=== PATIENT | male | born 1990 | race Caucasian/White ===

== ENCOUNTER 2017-10-27 02:43 | Emergency (ER) | payer SELFPAY ==
--- NOTE | 2017-10-27 04:30 | C.PDOC ---
History Of Present Illness 27 year old male presents to the ED for evaluation of intermittent abdominal pain after moving bowels which began 2 days ago. Patient reports the pain only occurs after he moves his bowels and sometimes radiates to his chest. Patient reports associated nausea, weakness and states he feels like he is going to "pass out." Patient also states he has been feeling his "heart beating rapidly. " Patient also complains of a stretching/pulling sensation to his right side. Patient states he is currently asymptomatic and denies fever, chills, vomiting. Time Seen by Provider: 10/27/17 03:35 Chief Complaint (Nursing): Abdominal Pain History Per: Patient History/Exam Limitations: no limitations Onset/Duration Of Symptoms: Days (2) Current Symptoms Are (Timing): Gone Radiation Of Pain To:: None Quality Of Discomfort: "Pain" Associated Symptoms: Nausea. denies: Fever, Chills, Vomiting Additional History Per: Patient Past Medical History Reviewed: Historical Data, Nursing Documentation, Vital Signs Vital Signs: Last Vital Signs Temp 98.2 F 10/27/17 05:58 Pulse 61 10/27/17 05:58 Resp 16 10/27/17 05:58 BP 114/72 10/27/17 05:58 Pulse Ox 100 10/27/17 05:58 - Medical History PMH: No Chronic Diseases Surgical History: No Surg Hx Family History: States: Unknown Family Hx - Social History Hx Tobacco Use: Yes Hx Alcohol Use: Yes Hx Substance Use: Yes - Immunization History Hx Tetanus Toxoid Vaccination: No Hx Influenza Vaccination: Yes Hx Pneumococcal Vaccination: No Review Of Systems Except As Marked, All Systems Reviewed And Found Negative. Constitutional: Positive for: Weakness. Negative for: Fever, Chills Cardiovascular: Positive for: Palpitations Gastrointestinal: Positive for: Nausea, Abdominal Pain. Negative for: Vomiting Physical Exam - Physical Exam Appears: Non-toxic, No Acute Distress Skin: Normal Color, Warm, Dry, No Rash Head: Atraumatic, Normacephalic Eye(s): bilateral: Normal Inspection, PERRL, EOMI Oral Mucosa: Moist Neck: Normal ROM, Supple Chest: Symmetrical, No Deformity, No Tenderness Cardiovascular: Rhythm Regular, No Murmur Respiratory: Normal Breath Sounds, No Rales, No Rhonchi, No Wheezing Gastrointestinal/Abdominal: Soft, No Tenderness, No Guarding, No Rebound Extremity: Normal ROM, Capillary Refill (less than 2 seconds ) Neurological/Psych: Oriented x3, Normal Speech, Normal Cognition, Normal Motor Gait: Steady ED Course And Treatment O2 Sat by Pulse Oximetry: 97 (on RA) Pulse Ox Interpretation: Normal Medical Decision Making Medical Decision Making: Progress: Abdomen obstructive series XR ordered. XRays shows constipation and otherwise negative. On re-exam, the patient remains playful and alert. Lungs are CTA, heart is RRR, abdomen is soft, non-tender and tolerating Po well. Patient was instructed to follow up with the medical doctor/clinic within 1-2 days. Return to the ED if worsened. Disposition - Disposition Referrals: [facility] [Outside] Disposition: HOME/ ROUTINE Disposition Time: 05:42 Condition: GOOD Additional Instructions: Follow up with the medical doctor/clinic within 1-2 days. Return to the ED if worsened. Prescriptions: Docusate [Colace] 100 mg PO DAILY #30 cap Polyethylene Glycol 3350 [Miralax] 17 gm PO DAILY PRN #100 ml PRN Reason: Constipation Instructions: Constipation in Adults, High Fiber Diet Forms: [employer] ([place]) - Clinical Impression Clinical Impression: Abdominal bloating, Constipated - PA / [employer] / Resident Statement MD/DO has reviewed & agrees with the documentation as recorded. - Scribe Statement The provider has reviewed the documentation as recorded by the Scribe (Juju Sanchez) All medical record entries made by the Scribe were at my direction and personally dictated by me. I have reviewed the chart and agree that the record accurately reflects my personal performance of the history, physical exam, medical decision making, and the department course for this patient. I have also personally directed, reviewed, and agree with the discharge instructions and disposition.
[2017-10-27 05:59] VITALS: BP 114/72; PULSE 61; RESP 16; TEMP 98.2
[2017-10-27 06:44] VITALS: O2SAT 97
--- NOTE | 2017-10-27 08:18 | RAD ---
PROCEDURE: Radiographs of the chest and abdomen (obstructive series) HISTORY: abd pain COMPARISON: No prior. TECHNIQUE: AP radiograph of the chest, with upright and supine radiographs of the abdomen. FINDINGS: CHEST: Lungs: No focal consolidation is seen. Cardiovascular: Heart size is within normal limits. Pleura: No pleural effusion is identified. Other findings: No acute fracture identified. ABDOMEN AND PELVIS: Bowel: Bowel gas pattern is nonspecific. There is scattered air in the small and large bowel. Small to moderate amount of stool noted throughout the colon. Free air: No free air seen under the diaphragm. Bones: No acute fracture identified. Other findings: None. IMPRESSION: No focal consolidation is seen. Small to moderate amount of stool throughout the colon.
== END 2017-10-27 05:59 | disposition home or self-care (01) ==
LOC: C.ER 02:43
DX: K59.00 Constipation, unspecified (principal); R14.0 Abdominal distension (gaseous); Z72.0 Tobacco use